=== PATIENT | female | born 1935 | race Caucasian/White ===

== ENCOUNTER 2018-07-27 17:41 | Inpatient (IN) | payer MEDICARE, SELFPAY ==
--- NOTE | 2018-07-27 17:53 | NURSING ---
pt arrived via private car w/family from [facility] at this time. Oriented to room/call light
[2018-07-27 18:05] LABS: Bedside Glucose 135 mg/dL (70-110)
[2018-07-27 18:09] VITALS: BMI 26.4
[2018-07-27 18:11] VITALS: BMI 26.5
[2018-07-27 18:15] VITALS: BP 145/91; PULSE 93; RESP 18; TEMP 37; O2SAT 98
[2018-07-27 21:06] LABS: Bedside Glucose 229 mg/dL (70-110)
[2018-07-27] MEDS: Doxepin Hcl 25 MG Capsule PO (23:12)
--- NOTE | 2018-07-28 00:58 | PCM.HP.STD ---
Problem List (1) Closed right hip fracture Status: Acute (2) Shortness of breath Status: Chronic (3) Vitamin C deficiency Status: Chronic (4) GERD (gastroesophageal reflux disease) Status: Chronic (5) Insomnia Status: Chronic (6) Tinea corporis Status: Chronic (7) Dry eye Status: Chronic (8) Osteoarthritis Status: Chronic (9) Hypertension Status: Chronic (10) Hypothyroidism Status: Chronic (11) Type 2 diabetes mellitus Status: Chronic History of Present Illness Date of Admission: 07/27/18 Chief Complaint: Here for rehabilitation, strengthening, prior to discharge home alone. The patient is a 82 year old Female with below past medical history hospitalized at [facility] for right hip fracture, underwent right hip hemiarthroplasty, admitted to TCU with debility, here for rehabilitation, strengthening, prior to discharge home alone. Past Medical History Past Medical History (Chronic Problems): Chronic Problems Shortness of breath (Chronic) Vitamin C deficiency (Chronic) GERD (gastroesophageal reflux disease) (Chronic) Insomnia (Chronic) Tinea corporis (Chronic) Dry eye (Chronic) Osteoarthritis (Chronic) Hypertension (Chronic) Hypothyroidism (Chronic) Type 2 diabetes mellitus (Chronic) Allergies No Known Allergies Allergy (Verified 10/06/14 10:08) Home Medications: Ambulatory Orders Medication Instructions Recorded Fosinopril Sodium 20 mg PO DAILY 10/06/14 Levothyroxine [Synthroid] 100 mcg PO DAILY 10/06/14 Docusate Sodium [Colace] 100 mg PO BID PRN PRN #60 capsule 10/13/14 Acetaminophen 650 mg PO Q4H PRN PRN 07/27/18 Albuterol Aerosols [Ventolin 2.5 mg INHALATION Q4H PRN 07/27/18 Aerosols] Ascorbic Acid [Vitamin C] 500 mg PO DAILY@0800 07/27/18 Biotin 500 mcg PO DAILY 07/27/18 Calcium Carbonate [Tums] 500 mg PO TIDCM PRN 07/27/18 Calcium Carbonate/Vitamin D3 1 each PO BID 07/27/18 [Calcium 500-Vit D3 200 Tablet] Enoxaparin Sodium [Lovenox] 40 mg SQ DAILY 07/27/18 Glipizide [Glipizide ER] 10 mg PO DAILY 07/27/18 Hydrocodone/Acetaminophen [[place] 1 each PO Q4H PRN PRN 07/27/18 5-325 Tablet] Insulin Detemir [Levemir (BKC)] 4 units SC QHS 07/27/18 Insulin Lispro [Humalog Kwikpen] See Protocol SQ TIDCM 07/27/18 Juice Plus Capsule 1 capsule PO DAILY 07/27/18 Metformin(XR) [Glucophage Xr] 500 mg PO DAILY 07/27/18 Miconazole Topical 2 % TOPICAL BID 07/27/18 Multivitamins,Ther W-Minerals 1 tablet PO DAILY 07/27/18 [Multivitamin With Minerals] Peg 400/Hypromellose/Glycerin 2 drop RIGHT EYE BID PRN PRN 07/27/18 [Artificial Tears] Polyethylene Glycol 3350 [Miralax] 17 gm PO DAILY 07/27/18 Pyridoxine HCl [Vitamin B-6] 200 mg PO DAILY 07/27/18 Surgical History: cholecystectomy, tonsillectomy, - - Right hip hemiarthroplasty. 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 Lives: Alone Smoking Status: Never smoker Tobacco Use: Non-smoker Alcohol: None Drugs: None - *Family History Maternal History Items: No pertinent history Paternal History Items: No pertinent history Review of Systems Constitutional: Denies: Chills, Fever, Weight Change HEENT: Denies: Head Aches, Sinus Congestion, Sinus Drainage Cardiovascular: Denies: Chest Pain, Palpitations Respiratory: Denies: Cough, Shortness of breath at rest, Sputum production Gastrointestinal: Denies: Abdominal Pain, Nausea, Vomiting Genitourinary: Denies: Dysuria Musculoskeletal: Denies: Joint Pain, Joint Tenderness Skin: Denies: Rash, Wounds Neurological: Denies: Numbness, Tingling, Focal weakness Psychiatric: Denies: Anxiety, Depression, Homicidal Ideations, Suicidal Ideations Hematologic/ Lymphatic: Denies: Easy Bruising, Easy Bleeding VTE Information - Inpt Only VTE Present on Admission: No VTE Mechan Device Prophylaxis: Knee High COOPER Hose VTE Pharm Prophylaxis ordered?: Yes Patient Problems: Active and Suspected Problems Closed right hip fracture (Acute) - Physical Exam General: Alert, Oriented x3, Cooperative HEENT: Atraumatic, PERRLA, EOMI, Normocephalic Neck: Supple, No JVD, Negative Carotid Bruits Lungs: Clear to auscultation, Normal air movement Cardiovascular: Regular rate, No murmurs Abdomen: Bowel Sounds Present, Soft, Non Tender Extremities: No edema, Capillary Refill Less than 3 Seconds Skin: No rashes, No breakdown Musculoskeletal: No Tenderness to Palpation of Joints or Extremities Neurological: Cranial nerves II-XII grossly intact Psych/Mental Status: Normal Affect, Appropriate Vital Signs Temp Pulse Resp BP Pulse Ox 98.6 F 93 18 145/91 H 98 07/27/18 18:15 07/27/18 18:15 07/27/18 18:15 07/27/18 18:15 07/27/18 18:15 Oxygen Delivery Method Room Air Weight: 70 kg Body Mass Index (BMI) 26.4 Finger Stick Blood Glucose 182 Intake and Output for Last 24 Hours 07/26/18 07/27/18 07/28/18 23:59 23:59 23:59 Intake Total 240 / 240 Balance 240 / 240 POC Glucose 07/27/18 07/27/18 21:03 18:00 POC Glucose 229 H 135 H Assessment/Plan All Active Problems Closed right hip fracture (Acute) Medical management (Acute) 82 year old female with below past medical history hospitalized for right hip fracture, underwent right hip hemiarthroplasty, admitted to TCU with debility, here for rehabilitation, strengthening, prior to discharge home alone. Debility - PT/OT. Pain - Tylenol 1000MG Q8H, Oxycodone 5MG Q4H PRN moderate pain. Bowel - Miralax 17GM daily, Senna/colace 2 tablets BID, Dulcolax 10MG PO daily PRN. Pneumonia vaccination - Administer Prevnar 13 and/or Pneumovax 23 as necessary. DVT prophylaxis - Lovenox 40MG SC daily. Shortness of breath - Albuterol 2.5MG Q4H PRN. Vitamin C deficiency - Vitamin C 500MG daily. Calcium deficiency - Calcium with D 500MG BID. GERD - Famotidine 40MG daily. Insomnia - Doxepin 25MG QHS. Diabetes Mellitus II - Metformin XR 500MG daily, Glipizide 10MG daily, Lantus 4 units QHS. Hypothyroidism - Levothyroxine 100MCG daily. Hypertension - Lisinopril 20MG daily. Tinea Corporis - Monistat topical BID. Nutrition - MVI daily. Dry Eyes - Artificial Tears 2GTT OD BID PRN. Vitamin B-6 deficiency - B-6 200MG daily.
--- NOTE | 2018-07-28 01:02 | HP.PCM_ITS ---
Problem List (1) Closed right hip fracture Status: Acute (2) Shortness of breath Status: Chronic (3) Vitamin C deficiency Status: Chronic (4) GERD (gastroesophageal reflux disease) Status: Chronic (5) Insomnia Status: Chronic (6) Tinea corporis Status: Chronic (7) Dry eye Status: Chronic (8) Osteoarthritis Status: Chronic (9) Hypertension Status: Chronic (10) Hypothyroidism Status: Chronic (11) Type 2 diabetes mellitus Status: Chronic History of Present Illness Date of Admission: 07/27/18 Chief Complaint: Here for rehabilitation, strengthening, prior to discharge home alone. The patient is a 82 year old Female with below past medical history hospitalized at [facility] for right hip fracture, underwent right hip hemiarthroplasty, admitted to TCU with debility, here for rehabilitation, strengthening, prior to discharge home alone. Past Medical History Past Medical History (Chronic Problems): Chronic Problems Shortness of breath (Chronic) Vitamin C deficiency (Chronic) GERD (gastroesophageal reflux disease) (Chronic) Insomnia (Chronic) Tinea corporis (Chronic) Dry eye (Chronic) Osteoarthritis (Chronic) Hypertension (Chronic) Hypothyroidism (Chronic) Type 2 diabetes mellitus (Chronic) Allergies No Known Allergies Allergy (Verified 10/06/14 10:08) Home Medications: Ambulatory Orders Medication Instructions Recorded Fosinopril Sodium 20 mg PO DAILY 10/06/14 Levothyroxine [Synthroid] 100 mcg PO DAILY 10/06/14 Docusate Sodium [Colace] 100 mg PO BID PRN PRN #60 capsule 10/13/14 Acetaminophen 650 mg PO Q4H PRN PRN 07/27/18 Albuterol Aerosols [Ventolin 2.5 mg INHALATION Q4H PRN 07/27/18 Aerosols] Ascorbic Acid [Vitamin C] 500 mg PO DAILY@0800 07/27/18 Biotin 500 mcg PO DAILY 07/27/18 Calcium Carbonate [Tums] 500 mg PO TIDCM PRN 07/27/18 Calcium Carbonate/Vitamin D3 1 each PO BID 07/27/18 [Calcium 500-Vit D3 200 Tablet] Enoxaparin Sodium [Lovenox] 40 mg SQ DAILY 07/27/18 Glipizide [Glipizide ER] 10 mg PO DAILY 07/27/18 Hydrocodone/Acetaminophen [[place] 1 each PO Q4H PRN PRN 07/27/18 5-325 Tablet] Insulin Detemir [Levemir (BKC)] 4 units SC QHS 07/27/18 Insulin Lispro [Humalog Kwikpen] See Protocol SQ TIDCM 07/27/18 Juice Plus Capsule 1 capsule PO DAILY 07/27/18 Metformin(XR) [Glucophage Xr] 500 mg PO DAILY 07/27/18 Miconazole Topical 2 % TOPICAL BID 07/27/18 Multivitamins,Ther W-Minerals 1 tablet PO DAILY 07/27/18 [Multivitamin With Minerals] Peg 400/Hypromellose/Glycerin 2 drop RIGHT EYE BID PRN PRN 07/27/18 [Artificial Tears] Polyethylene Glycol 3350 [Miralax] 17 gm PO DAILY 07/27/18 Pyridoxine HCl [Vitamin B-6] 200 mg PO DAILY 07/27/18 Surgical History: cholecystectomy, tonsillectomy, - - Right hip hemiarthroplasty. 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 Lives: Alone Smoking Status: Never smoker Tobacco Use: Non-smoker Alcohol: None Drugs: None - *Family History Maternal History Items: No pertinent history Paternal History Items: No pertinent history Review of Systems Constitutional: Denies: Chills, Fever, Weight Change HEENT: Denies: Head Aches, Sinus Congestion, Sinus Drainage Cardiovascular: Denies: Chest Pain, Palpitations Respiratory: Denies: Cough, Shortness of breath at rest, Sputum production Gastrointestinal: Denies: Abdominal Pain, Nausea, Vomiting Genitourinary: Denies: Dysuria Musculoskeletal: Denies: Joint Pain, Joint Tenderness Skin: Denies: Rash, Wounds Neurological: Denies: Numbness, Tingling, Focal weakness Psychiatric: Denies: Anxiety, Depression, Homicidal Ideations, Suicidal Ideation s Hematologic/ Lymphatic: Denies: Easy Bruising, Easy Bleeding VTE Information - Inpt Only VTE Present on Admission: No VTE Mechan Device Prophylaxis: Knee High COOPER Hose VTE Pharm Prophylaxis ordered?: Yes Patient Problems: Active and Suspected Problems Closed right hip fracture (Acute) - Physical Exam General: Alert, Oriented x3, Cooperative HEENT: Atraumatic, PERRLA, EOMI, Normocephalic Neck: Supple, No JVD, Negative Carotid Bruits Lungs: Clear to auscultation, Normal air movement Cardiovascular: Regular rate, No murmurs Abdomen: Bowel Sounds Present, Soft, Non Tender Extremities: No edema, Capillary Refill Less than 3 Seconds Skin: No rashes, No breakdown Musculoskeletal: No Tenderness to Palpation of Joints or Extremities Neurological: Cranial nerves II-XII grossly intact Psych/Mental Status: Normal Affect, Appropriate Vital Signs Temp Pulse Resp BP Pulse Ox 98.6 F 93 18 145/91 H 98 07/27/18 18:15 07/27/18 18:15 07/27/18 18:15 07/27/18 18:15 07/27/18 18:15 Oxygen Delivery Method Room Air Weight: 70 kg Body Mass Index (BMI) 26.4 Finger Stick Blood Glucose 182 Intake and Output for Last 24 Hours 07/26/18 07/27/18 07/28/18 23:59 23:59 23:59 Intake Total 240 / 240 Balance 240 / 240 POC Glucose 07/27/18 07/27/18 21:03 18:00 POC Glucose 229 H 135 H Assessment/Plan All Active Problems Closed right hip fracture (Acute) Medical management (Acute) 82 year old female with below past medical history hospitalized for right hip fracture, underwent right hip hemiarthroplasty, admitted to TCU with debility, here for rehabilitation, strengthening, prior to discharge home alone. * Debility - PT/OT. * Pain - Tylenol 1000MG Q8H, Oxycodone 5MG Q4H PRN moderate pain. * Bowel - Miralax 17GM daily, Senna/colace 2 tablets BID, Dulcolax 10MG PO daily PRN. * Pneumonia vaccination - Administer Prevnar 13 and/or Pneumovax 23 as necessary. * DVT prophylaxis - Lovenox 40MG SC daily. * Shortness of breath - Albuterol 2.5MG Q4H PRN. * Vitamin C deficiency - Vitamin C 500MG daily. * Calcium deficiency - Calcium with D 500MG BID. * GERD - Famotidine 40MG daily. * Insomnia - Doxepin 25MG QHS. * Diabetes Mellitus II - Metformin XR 500MG daily, Glipizide 10MG daily, Lantus 4 units QHS. * Hypothyroidism - Levothyroxine 100MCG daily. * Hypertension - Lisinopril 20MG daily. * Tinea Corporis - Monistat topical BID. * Nutrition - MVI daily. * Dry Eyes - Artificial Tears 2GTT OD BID PRN. * Vitamin B-6 deficiency - B-6 200MG daily.
[2018-07-28 06:24] LABS: Absolute Lymphocyte Count 3.47 X10^3/ul (0.83-4.51); Absolute Neutrophil Count 4.8 X10^3/uL (2.0-7.7); Basophil# 0.06 X10^3/uL; Basophil% 0.6 % (0-1); Eosinophil# 0.21 X10^3/uL; Eosinophils% 2.2 % (0-5); Hemoglobin 9.4 g/dl (12.0-15.0); Lymphocyte # 3.47 X10^3/ul (4.0); Lymphocyte % 35.6 % (19-41); Mean Corp Hgb Conc 32.4 g/gl (32-36); Mean Corpuscular Volume 92.7 fL (81-99); Mean Platelet Vol. 8.7 fl (6.2-12.0); Monocyte# 1.16 X10^3/uL; Monocyte% 11.9 % (0-10); Neutrophil # 4.75 X10^3/uL (2.7-7.7); Neutrophil % 48.8 % (47-70); Platelet Count 460 K/mm3 (150-450); RBC Distribution Width CV 13.6 % (11.6-14.6); Red Blood Count 3.13 M/mm3 (4.2-5.4); White Blood Count 9.7 K/mm3 (4.4-11.0)
[2018-07-28 06:25] LABS: POSITIVE COUNT NO; POSITIVE DIFFERENTIAL NO; POSITIVE MORPHOLOGY NO
[2018-07-28 06:32] LABS: Anion Gap 10 (5-15); BUN 16 mg/dL (7-18); BUN/Creat Ratio 22.6 RATIO (10-20); Calcium,Total 8.5 mg/dL (8.5-10.1); Chloride 106 mmol/L (98-107); Creatinine, Serum 0.71 mg/dL (0.55-1.02); EST Glomerular Filtration Rate 84 mL/min (>60); Est Glom Filt Rate - Afr Amer 102 mL/min (>60); Glucose 159 mg/dL (74-106); Potassium 3.7 mmol/L (3.5-5.1); Sodium Level 141 mmol/L (136-145)
[2018-07-28] MEDS: Enoxaparin 40 MG/0.4 ML Syringe SC (06:48)
[2018-07-28] MEDS: Pyridoxine HCl 100 MG Tablet 200 MG PO (06:49)
[2018-07-28] MEDS: Lisinopril 20 MG Tablet PO (06:49)
[2018-07-28] MEDS: Levothyroxine 100 MCG Tablet PO (06:49)
[2018-07-28 06:50] LABS: Bedside Glucose 163 mg/dL (70-110)
[2018-07-28] MEDS: Acetaminophen 500 MG Tablet 1000 MG PO ×3 (06:51→20:55)
[2018-07-28] MEDS: Famotidine 20 MG Tablet 40 MG PO (06:52)
[2018-07-28] MEDS: Senna/Docusate Sodium 1 Tablet 2 TABLET PO ×2 (06:53→17:16)
[2018-07-28] MEDS: Ascorbic Acid 500 MG Tablet PO (08:09)
[2018-07-28] MEDS: Multivitamins,Ther W-Minerals Tablet 1 TABLET PO (08:09)
[2018-07-28] MEDS: glipiZIDE XL 5 MG Tablet 10 MG PO (08:09)
[2018-07-28] MEDS: Calcium Carb/Vitamin D 1 TABLET Tablet PO ×2 (08:11→17:16)
[2018-07-28 10:00] VITALS: PULSE 84; RESP 18
--- NOTE | 2018-07-28 10:25 | CPS ---
Patient expressed she was working on incentive spirometer on own and was getting around 1000ml.
[2018-07-28 11:26] LABS: Bedside Glucose 208 mg/dL (70-110)
[2018-07-28] MEDS: Tuberculin,Purif.prot.deriv. 50 TU/ML Vial 5 ML ID (13:32)
[2018-07-28 15:18] VITALS: BP 138/62; PULSE 90; RESP 18; TEMP 36.4; O2SAT 99
[2018-07-28 16:56] LABS: Bedside Glucose 190 mg/dL (70-110)
[2018-07-28 20:55] LABS: Bedside Glucose 166 mg/dL (70-110)
[2018-07-28] MEDS: Doxepin Hcl 25 MG Capsule PO (20:56)
[2018-07-29] MEDS: Famotidine 20 MG Tablet 40 MG PO (05:14)
[2018-07-29] MEDS: Levothyroxine 100 MCG Tablet PO (05:15)
[2018-07-29] MEDS: Acetaminophen 500 MG Tablet 1000 MG PO ×3 (05:15→21:24)
[2018-07-29] MEDS: Pyridoxine HCl 100 MG Tablet 200 MG PO (05:15)
[2018-07-29] MEDS: Enoxaparin 40 MG/0.4 ML Syringe SC (05:16)
[2018-07-29] MEDS: Senna/Docusate Sodium 1 Tablet 2 TABLET PO (05:16)
[2018-07-29] MEDS: Lisinopril 20 MG Tablet PO (05:16)
[2018-07-29 06:46] LABS: Bedside Glucose 174 mg/dL (70-110)
[2018-07-29] MEDS: Ascorbic Acid 500 MG Tablet PO (07:56)
[2018-07-29] MEDS: glipiZIDE XL 5 MG Tablet 10 MG PO (07:56)
[2018-07-29] MEDS: Multivitamins,Ther W-Minerals Tablet 1 TABLET PO (07:56)
[2018-07-29] MEDS: Iron Polysaccharide Complex 150 MG CAPSULE PO (07:56)
[2018-07-29] MEDS: Calcium Carb/Vitamin D 1 TABLET Tablet PO ×2 (07:58→17:14)
[2018-07-29 10:00] VITALS: PULSE 79; RESP 18; O2SAT 94
[2018-07-29 11:11] LABS: Bedside Glucose 224 mg/dL (70-110)
[2018-07-29 15:52] VITALS: BP 124/52; PULSE 84; RESP 16; TEMP 37.1; O2SAT 99
[2018-07-29 17:06] LABS: Bedside Glucose 153 mg/dL (70-110)
[2018-07-29 21:15] LABS: Bedside Glucose 270 mg/dL (70-110)
[2018-07-29] MEDS: Doxepin Hcl 25 MG Capsule PO (21:24)
[2018-07-30] MEDS: Lisinopril 20 MG Tablet PO (06:36)
[2018-07-30] MEDS: Acetaminophen 500 MG Tablet 1000 MG PO ×3 (06:36→21:25)
[2018-07-30] MEDS: Enoxaparin 40 MG/0.4 ML Syringe SC (06:36)
[2018-07-30] MEDS: Levothyroxine 100 MCG Tablet PO (06:36)
[2018-07-30] MEDS: Pyridoxine HCl 100 MG Tablet 200 MG PO (06:36)
[2018-07-30] MEDS: Famotidine 20 MG Tablet 40 MG PO (06:36)
[2018-07-30 06:42] LABS: Bedside Glucose 138 mg/dL (70-110)
[2018-07-30] MEDS: Multivitamins,Ther W-Minerals Tablet 1 TABLET PO (08:30)
[2018-07-30] MEDS: Ascorbic Acid 500 MG Tablet PO (08:30)
[2018-07-30] MEDS: Iron Polysaccharide Complex 150 MG CAPSULE PO (08:31)
[2018-07-30] MEDS: glipiZIDE XL 5 MG Tablet 10 MG PO (08:31)
[2018-07-30] MEDS: Calcium Carb/Vitamin D 1 TABLET Tablet PO ×2 (08:31→17:16)
[2018-07-30 11:01] LABS: Bedside Glucose 177 mg/dL (70-110)
--- NOTE | 2018-07-30 12:07 | PCM.PN.RX ---
<Jerzy Barba - Last Filed: 07/30/18 12:07> Progress Note - Pharmacy Subjective: [] TCU Admission Objective: Allergies No Known Allergies Allergy (Verified 10/06/14 10:08) Current Medications Generic Name Dose Route Start Last Admin Trade Name Freq PRN Reason Stop Dose Admin Acetaminophen 1,000 mg 07/28/18 06:00 07/30/18 06:36 Tylenol PO 1,000 mg Q8 CALI Administration Albuterol Sulfate 2.5 mg 07/27/18 18:22 Ventolin Aerosols INHALATION Q4H PRN SOB/WHEEZING Ascorbic Acid 500 mg 07/28/18 08:00 07/30/18 08:30 Vitamin C PO 500 mg DAILY@0800 CALI Administration Bisacodyl 10 mg 07/28/18 01:08 Dulcolax PO DAILY PRN Constipation Calcium/Vitamin D 1 tablet 07/28/18 08:00 07/30/18 08:31 Os-Jacob 500mg + D PO 1 tablet BIDCM CALI Administration Doxepin HCl 25 mg 07/27/18 23:02 07/29/18 21:24 Sinequan PO 25 mg QHS CALI Administration Enoxaparin Sodium 40 mg 07/28/18 06:00 07/30/18 06:36 Lovenox SC 40 mg DAILY CALI Administration Famotidine 40 mg 07/28/18 06:00 07/30/18 06:36 Pepcid PO 40 mg DAILY CALI Administration Glipizide 10 mg 07/28/18 08:00 07/30/18 08:31 Glucotrol Xl PO 10 mg DAILY@0800 CALI Administration Insulin Glargine 4 units 07/27/18 22:00 07/29/18 21:24 Lantus (Bkc) SC 4 u QHS CALI Administration Levothyroxine Sodium 100 mcg 07/28/18 06:00 07/30/18 06:36 Synthroid PO 100 mcg DAILY CALI Administration Lisinopril 20 mg 07/28/18 06:00 07/30/18 06:36 Zestril PO 20 mg DAILY CALI Administration Metformin HCl 500 mg 07/28/18 08:00 07/30/18 08:31 Glucophage Xr PO 500 mg DAILYCM CALI Administration Multivitamins/Minerals 1 tablet 07/28/18 08:00 07/30/18 08:30 Multivitamin With Minerals PO 1 tablet DAILYCM [facility] Administration Oxycodone HCl 5 mg 07/28/18 01:09 Oxyir PO Q4H PRN PRN MODERATE PAIN (4-5/10) Polyethylene Glycol 17 gm 07/28/18 06:00 07/30/18 06:47 Miralax PO Not Given DAILY [facility] Polysaccharide Iron Complex 150 mg 07/29/18 08:00 07/30/18 08:31 Ferrex 150 PO 150 mg DAILYCM [facility] Administration Pyridoxine HCl 200 mg 07/28/18 06:00 07/30/18 06:36 Vitamin B-6 PO 200 mg DAILY [facility] Administration Senna/Docusate Sodium 2 tablet 07/28/18 06:00 07/30/18 06:38 Senokot-S, [place]-Colace PO Not Given BID [facility] Tuberculin PPD 5 tu 08/04/18 10:00 Tubersol, Aplisol, Ppd ID 08/04/18 10:01 X1 ONE Problem List Closed right hip fracture (Acute) Shortness of breath (Chronic) Vitamin C deficiency (Chronic) GERD (gastroesophageal reflux disease) (Chronic) Insomnia (Chronic) Tinea corporis (Chronic) Dry eye (Chronic) Osteoarthritis (Chronic) Vital Signs Temp Pulse Resp BP Pulse Ox 98.8 F 84 16 124/52 H 99 07/29/18 15:52 07/29/18 15:52 07/29/18 15:52 07/29/18 15:52 07/29/18 15:52 Oxygen Delivery Method Room Air Weight: 70 kg Body Mass Index (BMI) 26.4 Finger Stick Blood Glucose 182 Sodium 141 mmol/L (136-145) 07/28/18 06:05 Potassium 3.7 mmol/L (3.5-5.1) 07/28/18 06:05 Chloride 106 mmol/L (98-107) 07/28/18 06:05 Carbon Dioxide 25.0 mmol/L (21.0-32.0) 07/28/18 06:05 Anion Gap 10 (5-15) 07/28/18 06:05 BUN 16 mg/dL (7-18) 07/28/18 06:05 Creatinine 0.71 mg/dL (0.55-1.02) 07/28/18 06:05 Est GFR (MDRD) Af Amer 102 mL/min (>60) 07/28/18 06:05 Est GFR (MDRD) Non-Af 84 mL/min (>60) 07/28/18 06:05 BUN/Creatinine Ratio 22.6 RATIO (10-20) H 07/28/18 06:05 Glucose 159 mg/dL (74-106) H 07/28/18 06:05 Assessment/Plan: 1) Pain: Acetaminophen 1000mg po q8h, Oxycodone 5mg po q4h prn for moderate pain. Please continue to monitor prn usage and for signs/symptoms of increased/decreased pain 2) DVT Prophylaxis: Lovenox 40mg subq daily. Pt's SrCr is 0.7, CrCl is 38, Plts are 480k. Please continue to monitor. 3) Shortness of Breath: Albuterol Nebs--1 vial inhaled via nebulizer q4h prn for sob/wheezing. Please continue to monitor prn usage and for signs/symptoms of sob and or wheezing *4) Hypothyroidism: Levothyroxine 100mcg po daily. Please consider a yearly TSH level while the pt is on Levothyroxine. Thanks *5) GERD: Famotidine 40mg po daily. Pt has a CrCl of 38. [facility] recommends in reducing dose by 50% in pt's with a CrCl less the 50 ml/min. Please consider Famotidine 20mg daily. 6) Nutrition/Vitamin replacement: Vitamin B6 200mg po daily, Multivitamin po daily, Calcium 500mg with D po bid, Vitamin C 500mg po daily. Please continue to monitor labs (vitamin B, and Calcium levels.) 7) Hypertension: Lisinopril 20mg po daily. Pt's K+ is 3.7, SrCr is 0.71, BUN is 16, and CrCl is 38. Please continue to monitor. Pt's average blood pressure is 137/68. Please continue to monitor. 8) Diabetes: Lantus 4 units subq qhs, Glipizide XL 10mg po qam, Metformin XR 500mg po qd. Pt's GFR is 84. Please continue to monitor pt's blood glucose levels and adjust accordingly Psychotropic Medications: Doxepin 25mg po qhs for insomnia. Medication will require a GDR by 12/2018 unless clinically contraindicated. Unnecessary Medications: Bowel Regimen: Bisacodyl 10mg po daily prn constipation, Miralax 17gm po daily, Senna/Docusate 2 tablets po bid. Please continue to monitor prn usage, and for signs/symptoms of constipation/diarrhea Date of Note:: 07/30/18 - Provider Comments Provider responsibility: Provider responsible to enter orders to implement recommendations <Kenroy Jaime Chi - Last Filed: 07/30/18 15:34> Progress Note - Pharmacy Subjective: [] Objective: Allergies No Known Allergies Allergy (Verified 10/06/14 10:08) Current Medications Generic Name Dose Route Start Last Admin Trade Name Freq PRN Reason Stop Dose Admin Acetaminophen 1,000 mg 07/28/18 06:00 07/30/18 14:38 Tylenol PO 1,000 mg Q8 CALI Administration Albuterol Sulfate 2.5 mg 07/27/18 18:22 Ventolin Aerosols INHALATION Q4H PRN SOB/WHEEZING Ascorbic Acid 500 mg 07/28/18 08:00 07/30/18 08:30 Vitamin C PO 500 mg DAILY@0800 CALI Administration Bisacodyl 10 mg 07/28/18 01:08 Dulcolax PO DAILY PRN Constipation Calcium/Vitamin D 1 tablet 07/28/18 08:00 07/30/18 08:31 Os-Jacob 500mg + D PO 1 tablet BIDCM CALI Administration Doxepin HCl 25 mg 07/27/18 23:02 07/29/18 21:24 Sinequan PO 25 mg QHS CALI Administration Enoxaparin Sodium 40 mg 07/28/18 06:00 07/30/18 06:36 Lovenox SC 40 mg DAILY CALI Administration Famotidine 40 mg 07/28/18 06:00 07/30/18 06:36 Pepcid PO 40 mg DAILY CALI Administration Glipizide 10 mg 07/28/18 08:00 07/30/18 08:31 Glucotrol Xl PO 10 mg DAILY@0800 CALI Administration Insulin Glargine 4 units 07/27/18 22:00 07/29/18 21:24 Lantus (Bkc) SC 4 u QHS CALI Administration Levothyroxine Sodium 100 mcg 07/28/18 06:00 07/30/18 06:36 Synthroid PO 100 mcg DAILY CALI Administration Lisinopril 20 mg 07/28/18 06:00 07/30/18 06:36 Zestril PO 20 mg DAILY [facility] Administration Metformin HCl 500 mg 07/28/18 08:00 07/30/18 08:31 Glucophage Xr PO 500 mg DAILYCM [facility] Administration Multivitamins/Minerals 1 tablet 07/28/18 08:00 07/30/18 08:30 Multivitamin With Minerals PO 1 tablet DAILYCM [facility] Administration Oxycodone HCl 5 mg 07/28/18 01:09 Oxyir PO Q4H PRN PRN MODERATE PAIN (4-5/10) Polyethylene Glycol 17 gm 07/28/18 06:00 07/30/18 06:47 Miralax PO Not Given DAILY [facility] Polysaccharide Iron Complex 150 mg 07/29/18 08:00 07/30/18 08:31 Ferrex 150 PO 150 mg DAILYCM [facility] Administration Pyridoxine HCl 200 mg 07/28/18 06:00 07/30/18 06:36 Vitamin B-6 PO 200 mg DAILY [facility] Administration Senna/Docusate Sodium 2 tablet 07/28/18 06:00 07/30/18 06:38 Senokot-S, Shavonne-Colace PO Not Given BID [facility] Tuberculin PPD 5 tu 08/04/18 10:00 Tubersol, Aplisol, Ppd ID 08/04/18 10:01 X1 ONE Problem List Closed right hip fracture (Acute) Shortness of breath (Chronic) Vitamin C deficiency (Chronic) GERD (gastroesophageal reflux disease) (Chronic) Insomnia (Chronic) Tinea corporis (Chronic) Dry eye (Chronic) Osteoarthritis (Chronic) Vital Signs Temp Pulse Resp BP Pulse Ox 98.8 F 84 16 124/52 H 99 07/29/18 15:52 07/29/18 15:52 07/29/18 15:52 07/29/18 15:52 07/29/18 15:52 Oxygen Delivery Method Room Air Weight: 70 kg Body Mass Index (BMI) 26.4 Finger Stick Blood Glucose 182 Sodium 141 mmol/L (136-145) 07/28/18 06:05 Potassium 3.7 mmol/L (3.5-5.1) 07/28/18 06:05 Chloride 106 mmol/L (98-107) 07/28/18 06:05 Carbon Dioxide 25.0 mmol/L (21.0-32.0) 07/28/18 06:05 Anion Gap 10 (5-15) 07/28/18 06:05 BUN 16 mg/dL (7-18) 07/28/18 06:05 Creatinine 0.71 mg/dL (0.55-1.02) 07/28/18 06:05 Est GFR (MDRD) Af Amer 102 mL/min (>60) 07/28/18 06:05 Est GFR (MDRD) Non-Af 84 mL/min (>60) 07/28/18 06:05 BUN/Creatinine Ratio 22.6 RATIO (10-20) H 07/28/18 06:05 Glucose 159 mg/dL (74-106) H 07/28/18 06:05 Assessment/Plan: Psychotropic Medications: Unnecessary Medications: Bowel Regimen: - Provider Comments Provider responsibility: Provider responsible to enter orders to implement recommendations Provider Comments to Recommendations by Pharmacy: Agree
--- NOTE | 2018-07-30 13:07 | PHA.CONS_ITS ---
<Jerzy Barba - Last Filed: 07/30/18 12:07> Progress Note - Pharmacy Subjective: [] TCU Admission Objective: Allergies No Known Allergies Allergy (Verified 10/06/14 10:08) Current Medications Generic Name Dose Route Start Last Admin Trade Name Freq PRN Reason Stop Dose Admin Acetaminophen 1,000 mg 07/28/18 06:00 07/30/18 06:36 Tylenol PO 1,000 mg Q8 CALI Administration Albuterol Sulfate 2.5 mg 07/27/18 18:22 Ventolin Aerosols INHALATION Q4H PRN SOB/WHEEZING Ascorbic Acid 500 mg 07/28/18 08:00 07/30/18 08:30 Vitamin C PO 500 mg DAILY@0800 CALI Administration Bisacodyl 10 mg 07/28/18 01:08 Dulcolax PO DAILY PRN Constipation Calcium/Vitamin D 1 tablet 07/28/18 08:00 07/30/18 08:31 Os-Jacob 500mg + D PO 1 tablet BIDCM CALI Administration Doxepin HCl 25 mg 07/27/18 23:02 07/29/18 21:24 Sinequan PO 25 mg QHS CALI Administration Enoxaparin Sodium 40 mg 07/28/18 06:00 07/30/18 06:36 Lovenox SC 40 mg DAILY CALI Administration Famotidine 40 mg 07/28/18 06:00 07/30/18 06:36 Pepcid PO 40 mg DAILY CALI Administration Glipizide 10 mg 07/28/18 08:00 07/30/18 08:31 Glucotrol Xl PO 10 mg DAILY@0800 CALI Administration Insulin Glargine 4 units 07/27/18 22:00 07/29/18 21:24 Lantus (Bkc) SC 4 u QHS CALI Administration Levothyroxine Sodium 100 mcg 07/28/18 06:00 07/30/18 06:36 Synthroid PO 100 mcg DAILY CALI Administration Lisinopril 20 mg 07/28/18 06:00 07/30/18 06:36 Zestril PO 20 mg DAILY CALI Administration Metformin HCl 500 mg 07/28/18 08:00 07/30/18 08:31 Glucophage Xr PO 500 mg DAILYCM CALI Administration Multivitamins/Minerals 1 tablet 07/28/18 08:00 07/30/18 08:30 Multivitamin With Minerals PO 1 tablet DAILYCM [facility] Administration Oxycodone HCl 5 mg 07/28/18 01:09 Oxyir PO Q4H PRN PRN MODERATE PAIN (4-5/10) Polyethylene Glycol 17 gm 07/28/18 06:00 07/30/18 06:47 Miralax PO Not Given DAILY [facility] Polysaccharide Iron Complex 150 mg 07/29/18 08:00 07/30/18 08:31 Ferrex 150 PO 150 mg DAILYCM [facility] Administration Pyridoxine HCl 200 mg 07/28/18 06:00 07/30/18 06:36 Vitamin B-6 PO 200 mg DAILY [facility] Administration Senna/Docusate Sodium 2 tablet 07/28/18 06:00 07/30/18 06:38 Senokot-S, Shavonne-Colace PO Not Given BID [facility] Tuberculin PPD 5 tu 08/04/18 10:00 Tubersol, Aplisol, Ppd ID 08/04/18 10:01 X1 ONE Problem List Closed right hip fracture (Acute) Shortness of breath (Chronic) Vitamin C deficiency (Chronic) GERD (gastroesophageal reflux disease) (Chronic) Insomnia (Chronic) Tinea corporis (Chronic) Dry eye (Chronic) Osteoarthritis (Chronic) Vital Signs Temp Pulse Resp BP Pulse Ox 98.8 F 84 16 124/52 H 99 07/29/18 15:52 07/29/18 15:52 07/29/18 15:52 07/29/18 15:52 07/29/18 15:52 Oxygen Delivery Method Room Air Weight: 70 kg Body Mass Index (BMI) 26.4 Finger Stick Blood Glucose 182 Sodium 141 mmol/L (136-145) 07/28/18 06:05 Potassium 3.7 mmol/L (3.5-5.1) 07/28/18 06:05 Chloride 106 mmol/L (98-107) 07/28/18 06:05 Carbon Dioxide 25.0 mmol/L (21.0-32.0) 07/28/18 06:05 Anion Gap 10 (5-15) 07/28/18 06:05 BUN 16 mg/dL (7-18) 07/28/18 06:05 Creatinine 0.71 mg/dL (0.55-1.02) 07/28/18 06:05 Est GFR (MDRD) Af Amer 102 mL/min (>60) 07/28/18 06:05 Est GFR (MDRD) Non-Af 84 mL/min (>60) 07/28/18 06:05 BUN/Creatinine Ratio 22.6 RATIO (10-20) H 07/28/18 06:05 Glucose 159 mg/dL (74-106) H 07/28/18 06:05 Assessment/Plan: 1) Pain: Acetaminophen 1000mg po q8h, Oxycodone 5mg po q4h prn for moderate pain. Please continue to monitor prn usage and for signs/symptoms of increased/decreased pain 2) DVT Prophylaxis: Lovenox 40mg subq daily. Pt's SrCr is 0.7, CrCl is 38, Plts are 480k. Please continue to monitor. 3) Shortness of Breath: Albuterol Nebs--1 vial inhaled via nebulizer q4h prn for sob/wheezing. Please continue to monitor prn usage and for signs/symptoms of sob and or wheezing *4) Hypothyroidism: Levothyroxine 100mcg po daily. Please consider a yearly TSH level while the pt is on Levothyroxine. Thanks *5) GERD: Famotidine 40mg po daily. Pt has a CrCl of 38. [facility] recommends in reducing dose by 50% in pt's with a CrCl less the 50 ml/min. Please consider Famotidine 20mg daily. 6) Nutrition/Vitamin replacement: Vitamin B6 200mg po daily, Multivitamin po daily, Calcium 500mg with D po bid, Vitamin C 500mg po daily. Please continue to monitor labs (vitamin B, and Calcium levels.) 7) Hypertension: Lisinopril 20mg po daily. Pt's K+ is 3.7, SrCr is 0.71, BUN is 16, and CrCl is 38. Please continue to monitor. Pt's average blood pressure is 137/68. Please continue to monitor. 8) Diabetes: Lantus 4 units subq qhs, Glipizide XL 10mg po qam, Metformin XR 500mg po qd. Pt's GFR is 84. Please continue to monitor pt's blood glucose levels and adjust accordingly Psychotropic Medications: Doxepin 25mg po qhs for insomnia. Medication will require a GDR by 12/2018 unless clinically contraindicated. Unnecessary Medications: Bowel Regimen: Bisacodyl 10mg po daily prn constipation, Miralax 17gm po daily, Senna/Docusate 2 tablets po bid. Please continue to monitor prn usage, and for signs/symptoms of constipation/diarrhea Date of Note:: 07/30/18 - Provider Comments Provider responsibility: Provider responsible to enter orders to implement recommendations <Kenroy aJime Chi - Last Filed: 07/30/18 15:34> Progress Note - Pharmacy Subjective: [] Objective: Allergies No Known Allergies Allergy (Verified 10/06/14 10:08) Current Medications Generic Name Dose Route Start Last Admin Trade Name Freq PRN Reason Stop Dose Admin Acetaminophen 1,000 mg 07/28/18 06:00 07/30/18 14:38 Tylenol PO 1,000 mg Q8 CALI Administration Albuterol Sulfate 2.5 mg 07/27/18 18:22 Ventolin Aerosols INHALATION Q4H PRN SOB/WHEEZING Ascorbic Acid 500 mg 07/28/18 08:00 07/30/18 08:30 Vitamin C PO 500 mg DAILY@0800 CALI Administration Bisacodyl 10 mg 07/28/18 01:08 Dulcolax PO DAILY PRN Constipation Calcium/Vitamin D 1 tablet 07/28/18 08:00 07/30/18 08:31 Os-Jacob 500mg + D PO 1 tablet BIDCM [facility] Administration Doxepin HCl 25 mg 07/27/18 23:02 07/29/18 21:24 Sinequan PO 25 mg QHS [facility]I Administration Enoxaparin Sodium 40 mg 07/28/18 06:00 07/30/18 06:36 Lovenox SC 40 mg DAILY [facility] Administration Famotidine 40 mg 07/28/18 06:00 07/30/18 06:36 Pepcid PO 40 mg DAILY [facility] Administration Glipizide 10 mg 07/28/18 08:00 07/30/18 08:31 Glucotrol Xl PO 10 mg DAILY@0800 CALI Administration Insulin Glargine 4 units 07/27/18 22:00 07/29/18 21:24 Lantus (Bkc) SC 4 u QHS CALI Administration Levothyroxine Sodium 100 mcg 07/28/18 06:00 07/30/18 06:36 Synthroid PO 100 mcg DAILY [facility] Administration Lisinopril 20 mg 07/28/18 06:00 07/30/18 06:36 Zestril PO 20 mg DAILY [facility] Administration Metformin HCl 500 mg 07/28/18 08:00 07/30/18 08:31 Glucophage Xr PO 500 mg DAILYCM [facility] Administration Multivitamins/Minerals 1 tablet 07/28/18 08:00 07/30/18 08:30 Multivitamin With Minerals PO 1 tablet DAILYCM [facility] Administration Oxycodone HCl 5 mg 07/28/18 01:09 Oxyir PO Q4H PRN PRN MODERATE PAIN (4-5/10) Polyethylene Glycol 17 gm 07/28/18 06:00 07/30/18 06:47 Miralax PO Not Given DAILY [facility] Polysaccharide Iron Complex 150 mg 07/29/18 08:00 07/30/18 08:31 Ferrex 150 PO 150 mg DAILYCM [facility] Administration Pyridoxine HCl 200 mg 07/28/18 06:00 07/30/18 06:36 Vitamin B-6 PO 200 mg DAILY [facility] Administration Senna/Docusate Sodium 2 tablet 07/28/18 06:00 07/30/18 06:38 Senokot-S, Shavonne-Colace PO Not Given BID [facility] Tuberculin PPD 5 tu 08/04/18 10:00 Tubersol, Aplisol, Ppd ID 08/04/18 10:01 X1 ONE Problem List Closed right hip fracture (Acute) Shortness of breath (Chronic) Vitamin C deficiency (Chronic) GERD (gastroesophageal reflux disease) (Chronic) Insomnia (Chronic) Tinea corporis (Chronic) Dry eye (Chronic) Osteoarthritis (Chronic) Vital Signs Temp Pulse Resp BP Pulse Ox 98.8 F 84 16 124/52 H 99 07/29/18 15:52 07/29/18 15:52 07/29/18 15:52 07/29/18 15:52 07/29/18 15:52 Oxygen Delivery Method Room Air Weight: 70 kg Body Mass Index (BMI) 26.4 Finger Stick Blood Glucose 182 Sodium 141 mmol/L (136-145) 07/28/18 06:05 Potassium 3.7 mmol/L (3.5-5.1) 07/28/18 06:05 Chloride 106 mmol/L (98-107) 07/28/18 06:05 Carbon Dioxide 25.0 mmol/L (21.0-32.0) 07/28/18 06:05 Anion Gap 10 (5-15) 07/28/18 06:05 BUN 16 mg/dL (7-18) 07/28/18 06:05 Creatinine 0.71 mg/dL (0.55-1.02) 07/28/18 06:05 Est GFR (MDRD) Af Amer 102 mL/min (>60) 07/28/18 06:05 Est GFR (MDRD) Non-Af 84 mL/min (>60) 07/28/18 06:05 BUN/Creatinine Ratio 22.6 RATIO (10-20) H 07/28/18 06:05 Glucose 159 mg/dL (74-106) H 07/28/18 06:05 Assessment/Plan: Psychotropic Medications: Unnecessary Medications: Bowel Regimen: - Provider Comments Provider responsibility: Provider responsible to enter orders to implement recommendations Provider Comments to Recommendations by Pharmacy: Agree
[2018-07-30 15:35] VITALS: BP 116/58; PULSE 94; RESP 18; TEMP 36.8; O2SAT 98
--- NOTE | 2018-07-30 16:07 | RAD_ITS ---
STUDY: X-RAY CHEST REASON FOR EXAM: Female, 82 years old. Pain over left breast after fall, worse when coughing. Positive TB skin test. TECHNIQUE: Single AP portable upright view of the chest. COMPARISON: Frontal chest x-ray October 14, 2014. FINDINGS: The lungs are clear and more fully expanded today. There is no demonstrated pleural abnormality. Normal size heart. Normal mediastinum and sky. Normal visualized pulmonary arteries. There is stable atherosclerotic calcification of the aortic arch. There are stable multilevel degenerative changes of the visualized thoracic spine. There is stable degenerative osteoarthritis of the right humeral acromial joint space, consistent with chronic rotator cuff injury. Surgical clips of prior cholecystectomy again project in the right upper quadrant of the abdomen. RAD/Chest 1 View (Portable) IMPRESSION: No acute cardiopulmonary disease. Electronically Signed: Parag Harrell MD at 16:22 EST , Service support ,
[2018-07-30 16:41] LABS: Bedside Glucose 247 mg/dL (70-110)
[2018-07-30] MEDS: Doxepin Hcl 25 MG Capsule PO (21:00)
[2018-07-30 21:05] LABS: Bedside Glucose 233 mg/dL (70-110)
[2018-07-30 21:30] VITALS: PULSE 88; RESP 17; O2SAT 95
[2018-07-31] MEDS: Enoxaparin 40 MG/0.4 ML Syringe SC (06:18)
[2018-07-31] MEDS: Lisinopril 20 MG Tablet PO (06:19)
[2018-07-31] MEDS: Levothyroxine 100 MCG Tablet PO (06:20)
[2018-07-31] MEDS: Pyridoxine HCl 100 MG Tablet 200 MG PO (06:20)
[2018-07-31] MEDS: Famotidine 20 MG Tablet PO (06:20)
[2018-07-31] MEDS: Acetaminophen 500 MG Tablet 1000 MG PO ×3 (06:21→21:52)
[2018-07-31 06:36] LABS: Bedside Glucose 132 mg/dL (70-110)
[2018-07-31 07:10] LABS: Thyroid Stim Hormone (TSH) 2.16 uIU/mL (0.358-3.74)
[2018-07-31] MEDS: Ascorbic Acid 500 MG Tablet PO (08:04)
[2018-07-31] MEDS: Calcium Carb/Vitamin D 1 TABLET Tablet PO ×2 (08:04→16:43)
[2018-07-31] MEDS: glipiZIDE XL 5 MG Tablet 10 MG PO (08:04)
[2018-07-31] MEDS: Multivitamins,Ther W-Minerals Tablet 1 TABLET PO (08:04)
[2018-07-31] MEDS: Iron Polysaccharide Complex 150 MG CAPSULE PO (08:05)
[2018-07-31 11:05] LABS: Bedside Glucose 207 mg/dL (70-110)
[2018-07-31 15:45] VITALS: BP 116/54; PULSE 91; RESP 18; TEMP 36.9; O2SAT 97
[2018-07-31 16:47] LABS: Bedside Glucose 153 mg/dL (70-110)
[2018-07-31 20:12] VITALS: PULSE 66; RESP 18; O2SAT 96
[2018-07-31 20:55] LABS: Bedside Glucose 174 mg/dL (70-110)
[2018-07-31] MEDS: Doxepin Hcl 25 MG Capsule PO (21:53)
[2018-07-31] MEDS: oxyCODONE 5 MG Tablet PO (21:53)
[2018-08-01] MEDS: Famotidine 20 MG Tablet PO (06:11)
[2018-08-01] MEDS: Enoxaparin 40 MG/0.4 ML Syringe SC (06:11)
[2018-08-01] MEDS: Acetaminophen 500 MG Tablet 1000 MG PO ×3 (06:12→21:48)
[2018-08-01] MEDS: Levothyroxine 100 MCG Tablet PO (06:12)
[2018-08-01] MEDS: Pyridoxine HCl 100 MG Tablet 200 MG PO (06:13)
[2018-08-01] MEDS: Lisinopril 20 MG Tablet PO (06:13)
[2018-08-01 06:46] LABS: Bedside Glucose 117 mg/dL (70-110)
[2018-08-01] MEDS: Ascorbic Acid 500 MG Tablet PO (08:31)
[2018-08-01] MEDS: Calcium Carb/Vitamin D 1 TABLET Tablet PO ×2 (08:31→17:08)
[2018-08-01] MEDS: Multivitamins,Ther W-Minerals Tablet 1 TABLET PO (08:31)
[2018-08-01] MEDS: Iron Polysaccharide Complex 150 MG CAPSULE PO (08:31)
[2018-08-01] MEDS: glipiZIDE XL 5 MG Tablet 10 MG PO (08:31)
[2018-08-01 11:51] LABS: Bedside Glucose 123 mg/dL (70-110)
--- NOTE | 2018-08-01 13:46 | CASEMGMT ---
Insurance Clinical information sent. Pending continued stay approval at this time. Auth#[id number] AMY Granados, RETAIL LOAN ORIGINATOR
--- NOTE | 2018-08-01 15:03 | NURSING ---
Call received from Barby at Dr. Farmer's office. November D/C luis anytime between August 02-.
[2018-08-01 15:37] VITALS: BP 164/68; PULSE 84; RESP 18; TEMP 36.8; O2SAT 96
[2018-08-01 16:41] LABS: Bedside Glucose 166 mg/dL (70-110)
[2018-08-01] MEDS: Senna/Docusate Sodium 1 Tablet 2 TABLET PO (17:08)
[2018-08-01 21:06] LABS: Bedside Glucose 194 mg/dL (70-110)
[2018-08-01 21:18] VITALS: PULSE 86; RESP 18; O2SAT 95
[2018-08-01] MEDS: Doxepin Hcl 25 MG Capsule PO (21:48)
[2018-08-02 06:31] LABS: Bedside Glucose 104 mg/dL (70-110)
[2018-08-02] MEDS: Acetaminophen 500 MG Tablet 1000 MG PO ×3 (06:54→21:57)
[2018-08-02] MEDS: Pyridoxine HCl 100 MG Tablet 200 MG PO (06:55)
[2018-08-02] MEDS: Famotidine 20 MG Tablet PO (06:55)
[2018-08-02] MEDS: Lisinopril 20 MG Tablet PO (06:55)
[2018-08-02] MEDS: Senna/Docusate Sodium 1 Tablet 2 TABLET PO ×2 (06:55→16:55)
[2018-08-02] MEDS: Levothyroxine 100 MCG Tablet PO (06:55)
[2018-08-02] MEDS: Enoxaparin 40 MG/0.4 ML Syringe SC (06:59)
--- NOTE | 2018-08-02 08:34 | CASEMGMT ---
Insurance Continued stay approved with next update due on 08/07/18. Auth#[id number] AMY Granados, BEARING PRESS MACHINE OPERATOR
[2018-08-02] MEDS: glipiZIDE XL 5 MG Tablet 10 MG PO (09:22)
[2018-08-02] MEDS: Iron Polysaccharide Complex 150 MG CAPSULE PO (09:22)
[2018-08-02] MEDS: Multivitamins,Ther W-Minerals Tablet 1 TABLET PO (09:22)
[2018-08-02] MEDS: Calcium Carb/Vitamin D 1 TABLET Tablet PO ×2 (09:22→16:54)
[2018-08-02] MEDS: Ascorbic Acid 500 MG Tablet PO (09:23)
--- NOTE | 2018-08-02 11:11 | NURSING ---
PT REFUSED THE PNEUMOVAX PSV-23. PT STATED SHE WILL GET IT AT HER NEXT DOCTOR APPOINTMENT. INFO WAS GIVEN. REPORTED TO URBY HARO
[2018-08-02 11:21] LABS: Bedside Glucose 242 mg/dL (70-110)
--- NOTE | 2018-08-02 13:33 | CASEMGMT ---
Brief interview for mental status (BIMS) and resident mood interview (PHQ-9) completed on this day. BIMS score 15. PHQ-9 score 08/26
[2018-08-02 15:03] VITALS: BP 120/64; PULSE 80; RESP 18; TEMP 36.9; O2SAT 96
[2018-08-02 17:00] LABS: Bedside Glucose 269 mg/dL (70-110)
--- NOTE | 2018-08-02 18:07 | NURSING ---
Pt's BS elevated, Dr. Jaime updated. NO to increase metformin to 500mg BID.
[2018-08-02 20:46] LABS: Bedside Glucose 239 mg/dL (70-110)
[2018-08-02] MEDS: Doxepin Hcl 25 MG Capsule PO (21:46)
[2018-08-02 22:00] VITALS: PULSE 98; RESP 16; O2SAT 98
[2018-08-03 03:06] LABS: QNTFERON TB Nil Value 0.03 IU/mL (.); QNTFERON TB1+ Ag Value 0.03 IU/mL (.); QNTFERON TB2+ Ag Value 0.03 IU/mL (.)
[2018-08-03] MEDS: Polyethylene Glycol 3350 17 GM PACKET PO (06:31)
[2018-08-03] MEDS: Enoxaparin 40 MG/0.4 ML Syringe SC (06:31)
[2018-08-03] MEDS: Pyridoxine HCl 100 MG Tablet 200 MG PO (06:32)
[2018-08-03] MEDS: Famotidine 20 MG Tablet PO (06:32)
[2018-08-03] MEDS: Levothyroxine 100 MCG Tablet PO (06:33)
[2018-08-03] MEDS: Senna/Docusate Sodium 1 Tablet 2 TABLET PO ×2 (06:33→16:57)
[2018-08-03] MEDS: Lisinopril 20 MG Tablet PO (06:33)
[2018-08-03 06:36] LABS: Bedside Glucose 86 mg/dL (70-110)
[2018-08-03] MEDS: Acetaminophen 500 MG Tablet 1000 MG PO ×3 (06:37→20:59)
[2018-08-03] MEDS: Calcium Carb/Vitamin D 1 TABLET Tablet PO ×2 (08:05→16:57)
[2018-08-03] MEDS: Iron Polysaccharide Complex 150 MG CAPSULE PO (08:05)
[2018-08-03] MEDS: glipiZIDE XL 5 MG Tablet 10 MG PO (08:06)
[2018-08-03] MEDS: Multivitamins,Ther W-Minerals Tablet 1 TABLET PO (08:06)
[2018-08-03] MEDS: Ascorbic Acid 500 MG Tablet PO (08:07)
[2018-08-03 10:00] VITALS: PULSE 68; RESP 18; O2SAT 94
--- NOTE | 2018-08-03 10:32 | NURSING ---
Joel removed by this nurse per Doctor order. Pt tolerated well. No complaints of pain or discomfort. Pt ask for this nurse to put some steri strips on wound. 4 steri strips applied to proximal wound. ABD applied for padding. Teagan BELTRAN aware
[2018-08-03 15:06] VITALS: BP 106/54; PULSE 84; RESP 16; TEMP 35.1; O2SAT 99
[2018-08-03 16:42] LABS: QNTIFERON TB Positive Criteria Negative (Negative)
[2018-08-03 16:55] LABS: Bedside Glucose 155 mg/dL (70-110)
[2018-08-03] MEDS: Doxepin Hcl 25 MG Capsule PO (21:01)
[2018-08-03 21:06] LABS: Bedside Glucose 192 mg/dL (70-110)
[2018-08-04] MEDS: Levothyroxine 100 MCG Tablet PO (05:49)
[2018-08-04] MEDS: Senna/Docusate Sodium 1 Tablet 2 TABLET PO ×2 (05:49→16:54)
[2018-08-04] MEDS: Acetaminophen 500 MG Tablet 1000 MG PO ×3 (05:50→21:08)
[2018-08-04] MEDS: Famotidine 20 MG Tablet PO (05:50)
[2018-08-04] MEDS: Pyridoxine HCl 100 MG Tablet 200 MG PO (05:51)
[2018-08-04] MEDS: Enoxaparin 40 MG/0.4 ML Syringe SC (05:51)
[2018-08-04] MEDS: Lisinopril 20 MG Tablet PO (05:52)
[2018-08-04 06:31] LABS: Bedside Glucose 145 mg/dL (70-110)
[2018-08-04] MEDS: Ascorbic Acid 500 MG Tablet PO (07:56)
[2018-08-04] MEDS: glipiZIDE XL 5 MG Tablet 10 MG PO (07:56)
[2018-08-04] MEDS: Iron Polysaccharide Complex 150 MG CAPSULE PO (07:56)
[2018-08-04] MEDS: Multivitamins,Ther W-Minerals Tablet 1 TABLET PO (07:56)
[2018-08-04] MEDS: Calcium Carb/Vitamin D 1 TABLET Tablet PO ×2 (07:56→16:54)
[2018-08-04 09:21] LABS: Absolute Lymphocyte Count 3.31 X10^3/ul (0.83-4.51); Basophil# 0.07 X10^3/uL; Basophil% 0.7 % (0-1); Differential Indicated SCAN CRITERIA MET; Eosinophil# 0.11 X10^3/uL; Eosinophils% 1.1 % (0-5); Hematocrit 30.2 % (37-47); Hemoglobin 9.8 g/dl (12.0-15.0); Lymphocyte # 3.31 X10^3/ul (4.0); Lymphocyte % 32.7 % (19-41); Mean Corp Hgb Conc 32.5 g/gl (32-36); Mean Corpuscular Hgb 30.1 pg (27.0-32.0); Mean Corpuscular Volume 92.6 fL (81-99); Mean Platelet Vol. 8.4 fl (6.2-12.0); Monocyte# 0.61 X10^3/uL; Neutrophil # 6.01 X10^3/uL (2.7-7.7); Neutrophil % 59.3 % (47-70); POSITIVE COUNT NO; POSITIVE DIFFERENTIAL NO; POSITIVE MORPHOLOGY YES; Platelet Count 562 K/mm3 (150-450); RBC Distribution Width CV 14.1 % (11.6-14.6); RBC Distribution Width SD 48.1 fl (35.1-43.9); Red Blood Count 3.26 M/mm3 (4.2-5.4); White Blood Count 10.1 K/mm3 (4.4-11.0)
[2018-08-04 09:39] LABS: Anion Gap 10 (5-15); BUN 25 mg/dL (7-18); BUN/Creat Ratio 32.9 RATIO (10-20); Calcium,Total 9.2 mg/dL (8.5-10.1); Chloride 104 mmol/L (98-107); Creatinine, Serum 0.76 mg/dL (0.55-1.02); EST Glomerular Filtration Rate 77 mL/min (>60); Est Glom Filt Rate - Afr Amer 94 mL/min (>60); Glucose 203 mg/dL (74-106); Potassium 4.2 mmol/L (3.5-5.1); Sodium Level 139 mmol/L (136-145)
[2018-08-04 10:14] LABS: Reactive Lymphocyte RARE
[2018-08-04] MEDS: Tuberculin,Purif.prot.deriv. 50 TU/ML Vial 5 ML ID (10:59)
[2018-08-04 11:00] VITALS: PULSE 85; RESP 18; O2SAT 98
[2018-08-04 11:06] LABS: Bedside Glucose 152 mg/dL (70-110)
[2018-08-04 15:25] VITALS: BP 114/64; PULSE 78; RESP 16; TEMP 36.4; O2SAT 98
[2018-08-04 16:56] LABS: Bedside Glucose 122 mg/dL (70-110)
[2018-08-04 20:46] LABS: Bedside Glucose 190 mg/dL (70-110)
[2018-08-04] MEDS: Doxepin Hcl 25 MG Capsule PO (21:10)
[2018-08-05] MEDS: Famotidine 20 MG Tablet PO (06:05)
[2018-08-05] MEDS: Pyridoxine HCl 100 MG Tablet 200 MG PO (06:05)
[2018-08-05] MEDS: Acetaminophen 500 MG Tablet 1000 MG PO ×3 (06:05→20:21)
[2018-08-05] MEDS: Levothyroxine 100 MCG Tablet PO (06:05)
[2018-08-05] MEDS: Lisinopril 20 MG Tablet PO (06:05)
[2018-08-05] MEDS: Senna/Docusate Sodium 1 Tablet 2 TABLET PO ×2 (06:05→17:00)
[2018-08-05 06:46] LABS: Bedside Glucose 81 mg/dL (70-110)
--- NOTE | 2018-08-05 06:51 | NURSING ---
Dr. Jaime notified of patient's platelet count, ok to give Lovenox.
[2018-08-05] MEDS: Enoxaparin 40 MG/0.4 ML Syringe SC (07:00)
[2018-08-05] MEDS: Calcium Carb/Vitamin D 1 TABLET Tablet PO ×2 (08:07→17:01)
[2018-08-05] MEDS: Ascorbic Acid 500 MG Tablet PO (08:07)
[2018-08-05] MEDS: Multivitamins,Ther W-Minerals Tablet 1 TABLET PO (08:07)
[2018-08-05] MEDS: Iron Polysaccharide Complex 150 MG CAPSULE PO (08:07)
[2018-08-05] MEDS: glipiZIDE XL 5 MG Tablet 10 MG PO (08:07)
[2018-08-05 11:31] LABS: Bedside Glucose 167 mg/dL (70-110)
[2018-08-05 15:18] VITALS: BP 107/52; PULSE 84; RESP 16; TEMP 36.8; O2SAT 97
[2018-08-05 17:05] LABS: Bedside Glucose 190 mg/dL (70-110)
[2018-08-05 20:07] VITALS: PULSE 82; RESP 18; O2SAT 97
[2018-08-05] MEDS: Doxepin Hcl 25 MG Capsule PO (20:21)
[2018-08-05 21:02] LABS: Bedside Glucose 134 mg/dL (70-110)
[2018-08-06 06:46] LABS: Bedside Glucose 76 mg/dL (70-110)
[2018-08-06] MEDS: Acetaminophen 500 MG Tablet 1000 MG PO ×3 (06:58→20:48)
[2018-08-06] MEDS: Senna/Docusate Sodium 1 Tablet 2 TABLET PO (06:59)
[2018-08-06] MEDS: Enoxaparin 40 MG/0.4 ML Syringe SC (06:59)
[2018-08-06] MEDS: Pyridoxine HCl 100 MG Tablet 200 MG PO (06:59)
[2018-08-06] MEDS: Levothyroxine 100 MCG Tablet PO (06:59)
[2018-08-06] MEDS: Lisinopril 20 MG Tablet PO (06:59)
[2018-08-06] MEDS: Famotidine 20 MG Tablet PO (06:59)
[2018-08-06] MEDS: Ascorbic Acid 500 MG Tablet PO (08:14)
[2018-08-06] MEDS: glipiZIDE XL 5 MG Tablet 10 MG PO (08:14)
[2018-08-06] MEDS: Iron Polysaccharide Complex 150 MG CAPSULE PO (08:14)
[2018-08-06] MEDS: Calcium Carb/Vitamin D 1 TABLET Tablet PO ×2 (08:14→17:35)
[2018-08-06] MEDS: Multivitamins,Ther W-Minerals Tablet 1 TABLET PO (08:14)
[2018-08-06 10:00] VITALS: PULSE 87; RESP 18; O2SAT 97
--- NOTE | 2018-08-06 10:16 | NURSING ---
Pt has c/o rash to back, Dr. Jaime updated, NO for hydrocort cream 2.5% BID.
--- NOTE | 2018-08-06 10:24 | NURSING ---
NO to D/C joann r/t low blood sugars in AM.
[2018-08-06 11:06] LABS: Bedside Glucose 165 mg/dL (70-110)
--- NOTE | 2018-08-06 13:57 | MDS.RN ---
Information for the mds was obtained from review of the clinical record, interview of resident, staff, and direct observation of resident's care.
[2018-08-06 15:39] VITALS: BP 123/72; PULSE 91; RESP 18; TEMP 36.4; O2SAT 97
[2018-08-06 17:06] LABS: Bedside Glucose 133 mg/dL (70-110)
[2018-08-06] MEDS: Hydrocortisone 2.5% Crm 1 APPLIC TOPICAL (17:36)
[2018-08-06 20:37] LABS: Bedside Glucose 214 mg/dL (70-110)
[2018-08-06] MEDS: Doxepin Hcl 25 MG Capsule PO (20:48)
[2018-08-07] MEDS: Levothyroxine 100 MCG Tablet PO (06:31)
[2018-08-07] MEDS: Famotidine 20 MG Tablet PO (06:31)
[2018-08-07] MEDS: Pyridoxine HCl 100 MG Tablet 200 MG PO (06:31)
[2018-08-07] MEDS: Acetaminophen 500 MG Tablet 1000 MG PO ×3 (06:31→21:27)
[2018-08-07] MEDS: Senna/Docusate Sodium 1 Tablet 2 TABLET PO (06:31)
[2018-08-07] MEDS: Lisinopril 20 MG Tablet PO (06:31)
[2018-08-07] MEDS: Enoxaparin 40 MG/0.4 ML Syringe SC (06:32)
[2018-08-07] MEDS: Hydrocortisone 2.5% Crm 1 APPLIC TOPICAL ×2 (06:33→16:47)
[2018-08-07 06:41] LABS: Bedside Glucose 86 mg/dL (70-110)
[2018-08-07] MEDS: Multivitamins,Ther W-Minerals Tablet 1 TABLET PO (07:57)
[2018-08-07] MEDS: Ascorbic Acid 500 MG Tablet PO (07:57)
[2018-08-07] MEDS: glipiZIDE XL 5 MG Tablet 10 MG PO (07:58)
[2018-08-07] MEDS: Iron Polysaccharide Complex 150 MG CAPSULE PO (07:59)
[2018-08-07] MEDS: Calcium Carb/Vitamin D 1 TABLET Tablet PO ×2 (07:59→16:47)
[2018-08-07 11:05] LABS: Bedside Glucose 142 mg/dL (70-110)
--- NOTE | 2018-08-07 11:23 | CASEMGMT ---
Insurance Clinical information sent. Pending continued stay approval at this time. Auth#[id number] AMY Granados, DRAFTING CLERK
[2018-08-07 15:34] VITALS: BP 138/68; PULSE 89; RESP 18; TEMP 36.6; O2SAT 100
[2018-08-07 16:40] LABS: Bedside Glucose 111 mg/dL (70-110)
[2018-08-07 20:54] LABS: Bedside Glucose 190 mg/dL (70-110)
[2018-08-07] MEDS: Doxepin Hcl 25 MG Capsule PO (21:27)
[2018-08-07 21:37] VITALS: PULSE 68; RESP 18
[2018-08-08] MEDS: Hydrocortisone 2.5% Crm 1 APPLIC TOPICAL ×2 (06:13→17:01)
[2018-08-08] MEDS: Acetaminophen 500 MG Tablet 1000 MG PO ×3 (06:14→21:39)
[2018-08-08] MEDS: Levothyroxine 100 MCG Tablet PO (06:14)
[2018-08-08] MEDS: Enoxaparin 40 MG/0.4 ML Syringe SC (06:15)
[2018-08-08] MEDS: Senna/Docusate Sodium 1 Tablet 2 TABLET PO ×2 (06:15→17:01)
[2018-08-08] MEDS: Lisinopril 20 MG Tablet PO (06:15)
[2018-08-08] MEDS: Pyridoxine HCl 100 MG Tablet 200 MG PO (06:15)
[2018-08-08] MEDS: Famotidine 20 MG Tablet PO (06:15)
[2018-08-08 07:20] LABS: Bedside Glucose 62 mg/dL (70-110)
[2018-08-08] MEDS: Ascorbic Acid 500 MG Tablet PO (07:57)
[2018-08-08] MEDS: Multivitamins,Ther W-Minerals Tablet 1 TABLET PO (07:57)
[2018-08-08] MEDS: Calcium Carb/Vitamin D 1 TABLET Tablet PO ×2 (07:57→17:00)
[2018-08-08] MEDS: Iron Polysaccharide Complex 150 MG CAPSULE PO (07:57)
[2018-08-08] MEDS: glipiZIDE XL 5 MG Tablet 10 MG PO (07:57)
--- NOTE | 2018-08-08 11:05 | CASEMGMT ---
Insurance Continued stay denied with last cover day being 08/10/18 and resident to discharge or financial responsibility to begin on 08/11/18. Auth#[id number] AMY Granados, LUMBER CARRIER
--- NOTE | 2018-08-08 11:07 | CASEMGMT ---
Addendum entered by Margarita Pederson 08/08/18 11:24: Resident now deciding to appeal continued stay denial by insurance. Resident has all appeal information and is planning to initiate appeal on this day. Will continue to follow up with this. Resident does have a daughter that will be coming in this weekend and will be able to stay with resident for the first week at home. Resident reporting that main concerns are that resident is still needing some assistance with transfers and moving from one surface to another. Will continue to follow. Original Note: Plan of care meeting held. Resident present. This addiction social worker communicating to resident that continued stay has been denied by insurance with last cover day being 08/10/18 and resident to discharge or financial responsibility to begin on 08/11/18. Resident is agreeable to discharge date and plans to discharge to home alone at time of discharge. Physical and occupational therapy are recommending for resident to continue with services within the home through home health care. Resident is agreeable to recommendation and requesting for home health to be set up through [facility] ([facility]). Resident reporting to need a walker at time of discharge. Resident does not have a preference of [employer] to be utilized. Resident reporting that family is able to provide transportation home for resident at time of discharge. Support given. Will set up walker when order has been obtained. [facility] This addiction social worker making referral for physical and occupational therapy. Order to be completed. Proposed discharge date: 08/11/18 PLAN: Discharge to home alone with home health care. AMY Granados, SUPERVISOR MACHINE WORKERS
[2018-08-08 11:45] LABS: Bedside Glucose 110 mg/dL (70-110)
--- NOTE | 2018-08-08 14:04 | CASEMGMT ---
Brief interview for mental status (BIMS) and resident mood interview (PHQ-9) completed on this day. BIMS score 15/15. PHQ-9 score
[2018-08-08 15:18] VITALS: BP 98/60; PULSE 88; RESP 16; TEMP 36.4; O2SAT 99
[2018-08-08 16:55] LABS: Bedside Glucose 124 mg/dL (70-110)
[2018-08-08 20:55] LABS: Bedside Glucose 161 mg/dL (70-110)
[2018-08-08 21:30] VITALS: PULSE 86; RESP 18; O2SAT 97
[2018-08-08] MEDS: Doxepin Hcl 25 MG Capsule PO (21:38)
[2018-08-09 06:40] LABS: Bedside Glucose 77 mg/dL (70-110)
[2018-08-09] MEDS: Lisinopril 20 MG Tablet PO (06:43)
[2018-08-09] MEDS: Pyridoxine HCl 100 MG Tablet 200 MG PO (06:43)
[2018-08-09] MEDS: Acetaminophen 500 MG Tablet 1000 MG PO ×3 (06:44→21:13)
[2018-08-09] MEDS: Levothyroxine 100 MCG Tablet PO (06:44)
[2018-08-09] MEDS: Senna/Docusate Sodium 1 Tablet 2 TABLET PO ×2 (06:44→16:51)
[2018-08-09] MEDS: Famotidine 20 MG Tablet PO (06:44)
[2018-08-09] MEDS: Enoxaparin 40 MG/0.4 ML Syringe SC (06:45)
[2018-08-09] MEDS: Ascorbic Acid 500 MG Tablet PO (07:57)
[2018-08-09] MEDS: Calcium Carb/Vitamin D 1 TABLET Tablet PO ×2 (07:57→16:51)
[2018-08-09] MEDS: Multivitamins,Ther W-Minerals Tablet 1 TABLET PO (07:57)
[2018-08-09] MEDS: Iron Polysaccharide Complex 150 MG CAPSULE PO (07:57)
[2018-08-09] MEDS: glipiZIDE XL 5 MG Tablet PO (07:58)
[2018-08-09 09:35] VITALS: PULSE 84; RESP 18; O2SAT 96
--- NOTE | 2018-08-09 10:36 | MDS.RN ---
Pain interview for ursula 08/10/18 completed.
[2018-08-09 15:17] VITALS: BP 135/61; PULSE 82; RESP 16; TEMP 36.4; O2SAT 98
--- NOTE | 2018-08-09 15:52 | CASEMGMT ---
Addendum entered by Margarita Pederson 08/09/18 15:53: Correction: Proposed discharge date is: 08/11/18. Original Note: Social Work Order for walker faxed to Nelli Aiken to deliver walker to resident room prior to discharge in the event that the appeal is lost. Proposed discharge date: 08/10/18 pending appeal. PLAN: Discharge to home alone with home health care. DAVONTE Granados, COMBER FIXER
[2018-08-09] MEDS: Hydrocortisone 2.5% Crm 1 APPLIC TOPICAL (16:51)
[2018-08-09 17:06] LABS: Bedside Glucose 147 mg/dL (70-110)
--- NOTE | 2018-08-09 17:44 | CASEMGMT ---
Social Work Telephone call from [employer], resident lost appeal. Last cover day continues to be 08/10/18 with resident to discharge or financial responsibility to begin on 08/11/18. Spoke with resident in room. Resident confirming to have received a phone call from [employer] and to plan to discharge to home on 08/11/18. Support given. Proposed discharge date: 08/11/18 PLAN: Discharge to home alone with home health care. Patient daughter is planning to stay for the first few days at home. DAVONTE Granados, PROFESSOR OF PHYSICS
[2018-08-09 20:51] LABS: Bedside Glucose 162 mg/dL (70-110)
[2018-08-09] MEDS: Doxepin Hcl 25 MG Capsule PO (21:13)
--- NOTE | 2018-08-09 22:16 | PCM.DC ---
- Discharge Diagnoses Current Active Problems: Current Active and Chronic Problems Closed right hip fracture (Acute) Shortness of breath (Chronic) Vitamin C deficiency (Chronic) GERD (gastroesophageal reflux disease) (Chronic) Insomnia (Chronic) Tinea corporis (Chronic) Dry eye (Chronic) Osteoarthritis (Chronic) You will use the following diet at home:: No restrictions, Regular Your food should be the consistency of: Regular Your liquids should be the consistency of: Regular/Thin Discharge Activity: Return to Normal Activity, May Shower, Use Walker Weight Bearing Status: Weight bearing as tolerated Call your doctor if you observe: Fever of 101 or Higher, Inability to urinate, Inability to have a bowel movement, Shortness of breath, Chest pain, Uncontrolled pain Allergies/Adverse Reactions: Allergies No Known Allergies Allergy (Verified 10/06/14 10:08) Medications to take at Discharge Fosinopril Sodium 20 mg PO DAILY 10/06/14 Levothyroxine [Synthroid] 100 mcg PO DAILY 10/06/14 Ascorbic Acid [Vitamin C] 500 mg PO DAILY@0800 07/27/18 Biotin 500 mcg PO DAILY 07/27/18 Calcium Carbonate [Tums] 500 mg PO TIDCM PRN 07/27/18 Calcium Carbonate/Vitamin D3 [Calcium 500-Vit D3 200 Tablet] 1 each PO BID 07/27/18 Multivitamins,Ther W-Minerals [Multivitamin With Minerals] 1 tablet PO DAILY 07/27/18 Peg 400/Hypromellose/Glycerin [Artificial Tears] 2 drop RIGHT EYE BID PRN PRN 07/27/18 Pyridoxine HCl [Vitamin B-6] 200 mg PO DAILY 07/27/18 Acetaminophen [Tylenol] 1,000 mg PO Q8 tablet 08/09/18 Doxepin HCl [Sinequan] 25 mg PO QHS #30 cap 08/09/18 Famotidine [Pepcid] 20 mg PO DAILY #30 tab 08/09/18 Hydrocortisone 2.5% Crm [Hytone] 1 applic TOPICAL BID #1 tube 08/09/18 Iron Polysaccharide Complex [Ferrex 150] 150 mg PO DAILYCM #30 cap 08/09/18 Oxycodone [Oxyir] 5 mg PO Q4H PRN PRN 3 Days #10 tab 08/09/18 Polyethylene Glycol 3350 [Miralax] 17 gm PO DAILY #30 packet 08/09/18 Senna/Docusate Sodium [Senokot-S] 2 tab PO BID #120 tab 08/09/18 glipiZIDE XL [Glucotrol Xl] 5 mg PO DAILY@0800 #30 tab 08/09/18 The following prescriptions were given: Oxycodone [Oxyir] 5 mg PO Q4H PRN PRN 3 Days #10 tab PRN Reason: Moderate Pain (4-5) Doxepin HCl [Sinequan] 25 mg PO QHS #30 cap Famotidine [Pepcid] 20 mg PO DAILY #30 tab glipiZIDE XL [Glucotrol Xl] 5 mg PO DAILY@0800 #30 tab Iron Polysaccharide Complex [Ferrex 150] 150 mg PO DAILYCM #30 cap Polyethylene Glycol 3350 [Miralax] 17 gm PO DAILY #30 packet Hydrocortisone 2.5% Crm [Hytone] 1 applic TOPICAL BID #1 tube Senna/Docusate Sodium [Senokot-S] 2 tab PO BID #120 tab Primary Care Physician: Corey Portillo DO [COURTESY STAFF PHYSICIAN] - Please follow up with your Primary Care Physician in: 1 week. Test Results: Test results from this visit will be discussed in further detail at your follow-up appointment, if applicable. Please Follow Up With: SVETA BENSON MD (SURGEON @ [facility]) When: 2 weeks. Proposed Discharge Date: 08/11/18
--- NOTE | 2018-08-09 22:21 | DS.PCM_ITS ---
Discharge Date and Diagnosis - Problem List Patient Problems: Active and Suspected Problems Closed right hip fracture (Acute) Date of Admission: 07/27/18 Date of Discharge: 08/11/18 - Primary Discharge Diagnosis Active and Suspected Problems Closed right hip fracture (Acute) - Secondary Discharge Diagnosis Chronic Problems Shortness of breath (Chronic) Vitamin C deficiency (Chronic) GERD (gastroesophageal reflux disease) (Chronic) Insomnia (Chronic) Tinea corporis (Chronic) Dry eye (Chronic) Osteoarthritis (Chronic) Hypertension (Chronic) Hypothyroidism (Chronic) Type 2 diabetes mellitus (Chronic) Hospital Course and Treatment Imaging Results: 07/30/18 13:30 Diet: Calorie Controlled Is pt able to select menu?: Yes Diet Comments: low NA How many daily calories?: 1600 calorie Clinical Impression(s) from Imaging Studies Chest X-Ray 07/30/18 16:07 IMPRESSION: No acute cardiopulmonary disease. Electronically Signed: Parag Harrell MD at 16:22 EST , Service support , Labs (Last 48 Hours) 08/08/18 08/08/18 08/08/18 06:52 11:41 16:52 POC Glucose 62 L 110 124 H 08/08/18 08/09/18 08/09/18 20:52 06:35 17:00 POC Glucose 161 H 77 147 H 08/09/18 20:43 POC Glucose 162 H Operations: None Procedures: None Summary of Care Provided: The patient is a 82 year old Female with below past medical history hospitalized for right hip fracture, underwent right hip hemiarthroplasty, admitted to TCU with debility, here for rehabilitation, strengthening, prior to discharge home alone. Goal A1c < 8.1, resident hypoglycemic while at TCU, Metformin, basal insulin discontinued. Discharge home alone with Home Health Services, resident daughter planning to stay for first few days at home. Patient Problems: Active and Suspected Problems Closed right hip fracture (Acute) - Physical Exam Vital Signs Temp Pulse Resp BP Pulse Ox 97.5 F L 82 16 135/61 H 98 08/09/18 15:17 08/09/18 15:17 08/09/18 15:17 08/09/18 15:17 08/09/18 15:17 Oxygen Delivery Method Room Air Weight: 69.173 kg Body Mass Index (BMI) 26.4 Finger Stick Blood Glucose 182 Intake and Output for Last 24 Hours 08/07/18 08/08/18 08/09/18 23:59 23:59 23:59 Intake Total 840 / 840 1820 / 1820 1800 / 1800 Balance 840 / 840 1820 / 1820 1800 / 1800 POC Glucose 08/09/18 08/09/18 08/09/18 20:43 17:00 06:35 POC Glucose 162 H 147 H 77 Discharge Diet: No Restrictions Discharge Activity: Return to Normal Activity, May Shower, Use Walker Weight Bearing Status: Weight bearing as tolerated Call your doctor if you observe: Fever of 101 or Higher, Inability to urinate, Inability to have a bowel movement, Shortness of breath, Chest pain, Uncontrolled pain Home Medications: Medications to take at Discharge Fosinopril Sodium 20 mg PO DAILY 10/06/14 Levothyroxine [Synthroid] 100 mcg PO DAILY 10/06/14 Ascorbic Acid [Vitamin C] 500 mg PO DAILY@0800 07/27/18 Biotin 500 mcg PO DAILY 07/27/18 Calcium Carbonate [Tums] 500 mg PO TIDCM PRN 07/27/18 Calcium Carbonate/Vitamin D3 [Calcium 500-Vit D3 200 Tablet] 1 each PO BID 07/27/18 Multivitamins,Ther W-Minerals [Multivitamin With Minerals] 1 tablet PO DAILY 07/27/18 Peg 400/Hypromellose/Glycerin [Artificial Tears] 2 drop RIGHT EYE BID PRN PRN 07/27/18 Pyridoxine HCl [Vitamin B-6] 200 mg PO DAILY 07/27/18 Acetaminophen [Tylenol] 1,000 mg PO Q8 tablet 08/09/18 Doxepin HCl [Sinequan] 25 mg PO QHS #30 cap 08/09/18 Famotidine [Pepcid] 20 mg PO DAILY #30 tab 08/09/18 Hydrocortisone 2.5% Crm [Hytone] 1 applic TOPICAL BID #1 tube 08/09/18 Iron Polysaccharide Complex [Ferrex 150] 150 mg PO DAILYCM #30 cap 08/09/18 Oxycodone [Oxyir] 5 mg PO Q4H PRN PRN 3 Days #10 tab 08/09/18 Polyethylene Glycol 3350 [Miralax] 17 gm PO DAILY #30 packet 08/09/18 Senna/Docusate Sodium [Senokot-S] 2 tab PO BID #120 tab 08/09/18 glipiZIDE XL [Glucotrol Xl] 5 mg PO DAILY@0800 #30 tab 08/09/18 Following Prescrptions Were Given to Patient: Oxycodone [Oxyir] 5 mg PO Q4H PRN PRN 3 Days #10 tab PRN Reason: Moderate Pain (4-12/07) Doxepin HCl [Sinequan] 25 mg PO QHS #30 cap Famotidine [Pepcid] 20 mg PO DAILY #30 tab glipiZIDE XL [Glucotrol Xl] 5 mg PO DAILY@0800 #30 tab Iron Polysaccharide Complex [Ferrex 150] 150 mg PO DAILYCM #30 cap Polyethylene Glycol 3350 [Miralax] 17 gm PO DAILY #30 packet Hydrocortisone 2.5% Crm [Hytone] 1 applic TOPICAL BID #1 tube Senna/Docusate Sodium [Senokot-S] 2 tab PO BID #120 tab Primary Care Physician: Corey Portillo DO [COURTESY STAFF PHYSICIAN] - Please follow up with your Primary Care Physician in: 1 week. Please Follow Up With: SVETA BENSON MD (SURGEON @ [facility]) When: 2 weeks. Disposition: Home with Home Health Minutes spent on discharge:: 35 Patient Condition:: Good Medical Necessity - Tobacco Use Smoking Status: Never smoker Tobacco Use: Non-smoker Meaningful Use Info Meaningful Use Diagnoses (Choose all that apply): None applicable
--- NOTE | 2018-08-09 22:21 | PCM.PN.HH ---
Home Health Note - Plan Overview of reason of hospitalization: The patient is a 82 year old Female with below past medical history hospitalized for right hip fracture, underwent right hip hemiarthroplasty, admitted to TCU with debility, here for rehabilitation, strengthening, prior to discharge home alone. Goal A1c < 8.1, resident hypoglycemic while at TCU, Metformin, basal insulin discontinued. Discharge home alone with Home Health Services, resident daughter planning to stay for first few days at home. Problems: Patient was seen for Closed right hip fracture (Acute) Shortness of breath (Chronic) Vitamin C deficiency (Chronic) GERD (gastroesophageal reflux disease) (Chronic) Insomnia (Chronic) Tinea corporis (Chronic) Dry eye (Chronic) Osteoarthritis (Chronic) Complete List of Medical Problems Closed right hip fracture (Acute) Shortness of breath (Chronic) Vitamin C deficiency (Chronic) GERD (gastroesophageal reflux disease) (Chronic) Insomnia (Chronic) Tinea corporis (Chronic) Dry eye (Chronic) Osteoarthritis (Chronic) Medical management (Acute) Hypertension (Chronic) Hypothyroidism (Chronic) Type 2 diabetes mellitus (Chronic) - Requirements and Reasons Disciplines Needed/Ordered: Physical Therapy Reason for Disciplines: Gait Training, Stair Training, Fall Prevention, Home Safety/Equipment Instruction, Balance and/or Posture Training, Transfer Training Related To: Limited/Poor Endurance, Shortness of Breath with Activity, Physical Impairments, Unsteady Gait/Balance, Fall Risk Patient is unable to leave the home: Without Aid of Supportive Devices (crutches, cane, wheelchair, walker), Without the assistance of another person - Additional Disciplines Additional Disciplines Needed/Ordered: Occupational Therapy
[2018-08-10 06:31] LABS: Bedside Glucose 76 mg/dL (70-110)
[2018-08-10] MEDS: Enoxaparin 40 MG/0.4 ML Syringe SC (06:56)
[2018-08-10] MEDS: Famotidine 20 MG Tablet PO (06:57)
[2018-08-10] MEDS: Levothyroxine 100 MCG Tablet PO (06:57)
[2018-08-10] MEDS: Senna/Docusate Sodium 1 Tablet 2 TABLET PO (06:57)
[2018-08-10] MEDS: Pyridoxine HCl 100 MG Tablet 200 MG PO (06:57)
[2018-08-10] MEDS: Acetaminophen 500 MG Tablet 1000 MG PO ×3 (06:57→21:28)
[2018-08-10] MEDS: Lisinopril 20 MG Tablet PO (06:58)
[2018-08-10] MEDS: Iron Polysaccharide Complex 150 MG CAPSULE PO (08:11)
[2018-08-10] MEDS: glipiZIDE XL 5 MG Tablet PO (08:11)
[2018-08-10] MEDS: Ascorbic Acid 500 MG Tablet PO (08:11)
[2018-08-10] MEDS: Calcium Carb/Vitamin D 1 TABLET Tablet PO ×2 (08:11→16:40)
[2018-08-10] MEDS: Multivitamins,Ther W-Minerals Tablet 1 TABLET PO (08:11)
[2018-08-10] MEDS: Hydrocortisone 2.5% Crm 1 APPLIC TOPICAL ×2 (08:16→16:40)
[2018-08-10 11:11] LABS: Bedside Glucose 195 mg/dL (70-110)
[2018-08-10 16:00] VITALS: BP 147/62; PULSE 88; RESP 18; TEMP 36.6; O2SAT 99
[2018-08-10 17:11] LABS: Bedside Glucose 105 mg/dL (70-110)
[2018-08-10 21:05] LABS: Bedside Glucose 271 mg/dL (70-110)
[2018-08-10] MEDS: DOXEPIN HCL 50 MG CAPSULE PO (21:28)
[2018-08-10 22:00] VITALS: PULSE 16; RESP 16; O2SAT 97
[2018-08-11] MEDS: Lisinopril 20 MG Tablet PO (06:51)
[2018-08-11] MEDS: Enoxaparin 40 MG/0.4 ML Syringe SC (06:51)
[2018-08-11] MEDS: Levothyroxine 100 MCG Tablet PO (06:51)
[2018-08-11] MEDS: Acetaminophen 500 MG Tablet 1000 MG PO ×2 (06:52→13:24)
[2018-08-11] MEDS: Senna/Docusate Sodium 1 Tablet 2 TABLET PO (06:52)
[2018-08-11] MEDS: Pyridoxine HCl 100 MG Tablet 200 MG PO (06:52)
[2018-08-11] MEDS: Famotidine 20 MG Tablet PO (06:52)
[2018-08-11 06:56] LABS: Bedside Glucose 71 mg/dL (70-110)
[2018-08-11] MEDS: glipiZIDE XL 5 MG Tablet 10 MG PO (08:09)
[2018-08-11 08:10] LABS: Absolute Lymphocyte Count 4.65 X10^3/ul (0.83-4.51); Absolute Neutrophil Count 3.6 X10^3/uL (2.0-7.7); Basophil# 0.07 X10^3/uL; Basophil% 0.7 % (0-1); Eosinophils% 2.1 % (0-5); Hemoglobin 9.8 g/dl (12.0-15.0); Lymphocyte # 4.65 X10^3/ul (4.0); Lymphocyte % 49.6 % (19-41); Mean Corp Hgb Conc 31.6 g/gl (32-36); Mean Corpuscular Hgb 29.5 pg (27.0-32.0); Mean Corpuscular Volume 93.4 fL (81-99); Mean Platelet Vol. 8.7 fl (6.2-12.0); Monocyte# 0.83 X10^3/uL; Monocyte% 8.9 % (0-10); Neutrophil # 3.61 X10^3/uL (2.7-7.7); Neutrophil % 38.6 % (47-70); POSITIVE COUNT NO; POSITIVE DIFFERENTIAL NO; POSITIVE MORPHOLOGY NO; Platelet Count 496 K/mm3 (150-450); Red Blood Count 3.32 M/mm3 (4.2-5.4); White Blood Count 9.4 K/mm3 (4.4-11.0)
[2018-08-11] MEDS: Ascorbic Acid 500 MG Tablet PO (08:10)
[2018-08-11] MEDS: Iron Polysaccharide Complex 150 MG CAPSULE PO (08:10)
[2018-08-11] MEDS: Multivitamins,Ther W-Minerals Tablet 1 TABLET PO (08:10)
[2018-08-11] MEDS: Calcium Carb/Vitamin D 1 TABLET Tablet PO (08:10)
[2018-08-11 08:32] LABS: Anion Gap 8 (5-15); BUN 24 mg/dL (7-18); BUN/Creat Ratio 35.9 RATIO (10-20); Calcium,Total 9.1 mg/dL (8.5-10.1); Chloride 107 mmol/L (98-107); Creatinine, Serum 0.67 mg/dL (0.55-1.02); EST Glomerular Filtration Rate 90 mL/min (>60); Est Glom Filt Rate - Afr Amer 109 mL/min (>60); Glucose 75 mg/dL (74-106); Sodium Level 139 mmol/L (136-145)
[2018-08-11 14:08] VITALS: BP 117/54; PULSE 92; RESP 18; TEMP 36.8; O2SAT 96
--- NOTE | 2018-08-13 15:56 | CASEMGMT ---
Insurance Notified insurance of resident discharge on 08/11/18 to home alone with home health care. Auth#[id number] DAVONTE Granados, [employer]
--- NOTE | 2018-08-22 15:15 | MDS.RN ---
Information for the mds was obtained from review of the clinical record, interview of resident, staff, and direct observation of resident's care.
== END 2018-08-11 13:30 | disposition home health service (06) | DRG 561 ==
PROVIDERS: Admitting Provider Family Medicine Geriatric Medicine; Family Provider Family Medicine; PCP Family Medicine; Referring Provider Family Medicine Geriatric Medicine; Visit Provider Family Medicine Geriatric Medicine
DX: S72.001D Fracture of unspecified part of neck of right femur, subsequent encounter for closed fracture with routine healing (principal); K21.9 Gastro-esophageal reflux disease without esophagitis; M19.90 Unspecified osteoarthritis, unspecified site; E11.9 Type 2 diabetes mellitus without complications; B35.4 Tinea corporis; E03.9 Hypothyroidism, unspecified; I10 Essential (primary) hypertension; H04.123 Dry eye syndrome of bilateral lacrimal glands; W19.XXXD Unspecified fall, subsequent encounter
CPT/HCPCS: 36415; 71045; 80048; 82962; 84443; 85025; 86480; 97110; 97116; 97161; 97166; 97530; 97535; 97802

== ENCOUNTER 2020-09-23 10:48 | Outpatient (RCR) | payer MEDICARE, SELFPAY | END 2020-09-23 23:59 | LOC: IMMUN 10:48 | PROVIDERS: PCP Nurse Practitioner Primary Care; Referring Provider Family Medicine; Visit Provider Family Medicine | DX: Z23 Encounter for immunization (principal) | CPT/HCPCS: 0011A; 0012A; 91301 ==

== ENCOUNTER → 2022-03-15 | Outpatient (CLI) | payer MEDICARE, SELFPAY ==
--- NOTE | 2022-03-15 16:00 | MRI_ITS ---
STUDY: MRI RIGHT ANKLE WITHOUT CONTRAST REASON FOR EXAM: Right dorsal proximal midfoot pain for one year. TECHNIQUE: Standardized fat and water weighted pulse sequences were obtained in all 3 orthogonal planes. COMPARISON: None. FINDINGS: There is edema in the subcutis adipose space. Normal posterior tibialis tendon. Normal flexor digitorum longus tendon. There is fluid in the flexor hallucis longus tendon sheath distal to the sustentaculum donnie (inversion recovery sagittal image 13). Normal peroneus longus and brevis tendons. Normal tibialis anterior tendon. Normal extensor hallucis longus tendon. Normal extensor digitorum longus tendons. Normal Achilles tendon and teno-osseous insertion. There is mild thickening of the central cord of the plantar fascia (inversion recovery sagittal image 13) consistent with plantar fasciitis. Normal plantar calcaneal tubercles. Normal intrinsic muscles of the rearfoot. Normal distal tibiofibular syndesmotic ligamentous complex. Normal lateral ligamentous complex. There is mild edema in the sinus tarsi (inversion recovery sagittal images 9-11). Normal deltoid ligamentous complexes. Normal plantar calcaneonavicular (spring) ligament. Normal tibiotalar articulation. Normal talar dome. There is a small focus of subchondral bone edema in the posterior talus adjacent to the subtalar articulation (inversion recovery sagittal image 11). Normal talonavicular articulation. Normal calcaneocuboid articulation. There is arthrosis of the navicular-cuneiform articulations with chondral thinning and subchondral cystic change/bone edema (inversion recovery sagittal images 12-17). There is arthrosis of the first through fourth tarsometatarsal articulations with chondral thinning and subchondral cystic change/mild bone edema (inversion recovery sagittal images 7-17). 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 Small focus of subchondral bone edema of the posterior talus at the posterior subtalar articulation, a stress phenomenon. Mild chronic plantar fasciitis. Flexor hallucis longus tenosynovitis. Mild edema in the sinus tarsi. Electronically Signed: Maldonado Doan MD at 18:19 EDT ,
--- NOTE | 2022-03-15 16:45 | MRI_ITS ---
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 TECHNIQUE: Standardized fat and water weighted pulse sequences were obtained in all 3 orthogonal planes. COMPARISON: None. FINDINGS: There is mild edema in the subcutis adipose space. Normal posterior tibialis tendon. Normal flexor digitorum longus tendon. Normal flexor hallucis longus tendon. Normal peroneus longus and brevis tendons. There is atrophy with fat replacement of the visualized distal peroneal musculature (T1 sagittal image 4). Normal tibialis anterior tendon. Normal extensor hallucis longus tendon. Normal extensor digitorum longus tendons. Normal Achilles tendon and teno-osseous insertion. There is a posterior calcaneal enthesophyte. There is thickening of the central cord of the plantar fascia (inversion recovery sagittal image 13) consistent with chronic plantar fasciitis. There is a plantar calcaneal enthesophyte. Normal intrinsic muscles of the rearfoot. Normal distal tibiofibular syndesmotic ligamentous complex. Normal lateral ligamentous complex. Normal subtalar ligaments and sinus tarsi. Normal deltoid ligamentous complexes. Normal plantar calcaneonavicular (spring) ligament. There is a small osteochondral lesion of the lateral talar dome (T1 sagittal image 7) measuring approximately 0.5 x 0.4 cm (AP x transverse) with mild cystic change of the fragment (inversion recovery sagittal image 8). Normal subtalar articulations. Normal talonavicular articulation. Normal calcaneocuboid articulation. There is arthrosis of the navicular-cuneiform articulations with chondral thinning and subchondral cystic change/bone edema (inversion recovery sagittal images 12-18). There is arthrosis of the second through fifth tarsometatarsal articulations with chondral thinning and subchondral cystic change (inversion recovery sagittal images 9-16). MRI/Lower Ext Joint Only (Routine) IMPRESSION: Atrophy of the visualized distal peroneal musculature. Chronic plantar fasciitis. Small osteochondral lesion of the lateral talar dome. Arthrosis of the navicular-cuneiform and second through fifth tarsometatarsal articulations. Electronically Signed: Maldonado Doan MD at 18:19 EDT ,
== END | disposition home or self-care (01) ==
PROVIDERS: PCP Nurse Practitioner Primary Care; Visit Provider Podiatrist
DX: M19.071 Primary osteoarthritis, right ankle and foot (principal); M21.962 Unspecified acquired deformity of left lower leg
CPT/HCPCS: 73721